=== PATIENT | male | born 1995 | race Caucasian/White ===

== ENCOUNTER 2022-03-02 19:26 | Emergency (ER) | payer SELFPAY ==
[~2022-03-02] VITALS: Ht 177.8 cm; Wt 83.9 kg
--- NOTE | 2022-03-02 19:26 | NUR ---
PT ANAMARIA GREEN, PREBOOK. TAKEN TO CHAIR
--- NOTE | 2022-03-02 19:31 | NUR ---
ALEXANDRA DAVIS EXAMINING PATIENT
[2022-03-02 19:39] VITALS: BP 144/82
--- NOTE | 2022-03-02 19:51 | NUR ---
PATIENT BIB [employer]. PATIENT EXAMINED BY DR. DING. PATIENT MEDICALLY CLEARED AND RELEASED IN CUSTODY IN STABLE CONDITION. ORIGINAL PRE-BOOK FORM GIVEN TO OFFICER JACOB, #[id number].
== END 2022-03-02 19:51 ==
LOC: MED 19:26
DX: S00.531A Contusion of lip, initial encounter (principal); S00.81XA Abrasion of other part of head, initial encounter; F12.90 Cannabis use, unspecified, uncomplicated; Z02.89 Encounter for other administrative examinations; Y04.2XXA Assault by strike against or bumped into by another person, initial encounter; Y93.89 Activity, other specified; Y92.89 Other specified places as the place of occurrence of the external cause; Y99.8 Other external cause status
CPT/HCPCS: 99283